=== PATIENT | female | born 1955 | race Hispanic/Latino ===

== ENCOUNTER → 2020-12-10 | Outpatient (CLI) | payer OTHER ==
[~2020-12-10] MED LIST: CEFD250S3 PO; DIPH25CA53 PO; HC1C1.5 TP
== END | disposition home or self-care (01) ==
LOC: RAH 16:12
PROVIDERS: ATTEND Family Medicine
DX: Z12.31 Encounter for screening mammogram for malignant neoplasm of breast (principal)
CPT/HCPCS: 77067

== ENCOUNTER 2022-03-16 21:35 | Observation (INO) | payer OTHER ==
[~2022-03-16] VITALS: Ht 142.2 cm; Wt 62.6 kg
[2022-03-16 21:46] LABS: BASOPHILS % (AUTO) 0.9 % (0.0-5.0); HEMATOCRIT 38.7 % (36-48); LYMPHOCYTES % (AUTO) 34.7 % (21.0-51.0); MEAN CORPUSCULAR HEMOGLOBIN 31.3 pg (27.0-33.0); MEAN CORPUSCULAR HGB CONC 34.6 g/dL (32.0-36.0); MEAN CORPUSCULAR VOLUME 90.4 fL (79-99); MONOCYTES % (AUTO) 8.4 % (3.0-13.0); NEUTROPHILS % (AUTO) 53.8 % (40.0-77.0); PLATELET COUNT (AUTO) 213 K/uL (130-400); RED BLOOD CELL COUNT(AUTO) 4.28 MIL/uL (4.00-5.50); RED CELL DISTRIBUTION WIDTH 12.4 % (11.0-15.5); WHITE BLOOD COUNT (AUTO) 9.3 K/uL (4.8-10.8)
[2022-03-16 22:00] LABS: CREATININE 0.8 mg/dL (0.5-1.5); POTASSIUM 3.6 mmol/L (3.5-5.1)
[2022-03-16 22:05] LABS: ALBUMIN 4.1 g/dL (3.5-5.0); TOTAL PROTEIN, SERUM 8.4 g/dL (6.0-8.3)
[2022-03-16 22:11] LABS: B-TYPE NATRIURETIC PEPTIDE 17 pg/mL (0-100)
[2022-03-16] MEDS ORDERED: NITROGLYCERIN 1GM OINT 1 INCH/1GM TD ONE (23:30)
[2022-03-16] MEDS ORDERED: HYDROCODONE/ACETAMINOPHEN 5/325 MG TAB PO ONE (23:30)
[2022-03-17] MEDS ORDERED: ASPIRIN 81MG CHEW TAB PO STA (03:57)
[2022-03-17] MEDS ORDERED: NITROGLYCERIN 0.4 MG SL TAB SL PRN (04:00)
[2022-03-17] MEDS ORDERED: HYDRALAZINE 20MG/ML VIAL IV STA (04:02)
[2022-03-17] MEDS ORDERED: TEMAZEPAM 15 MG CAPSULE PO PRN (04:30)
[2022-03-17] MEDS ORDERED: GLUCAGON 1MG KIT 1 MG ML IM PRN (04:30)
[2022-03-17] MEDS ORDERED: ACETAMINOPHEN 650 MG SUPPOSITORY RC PRN (04:30)
[2022-03-17] MEDS ORDERED: MAGNESIUM 2GM PREMIX 50ML 50 ML IV PRN (04:30)
[2022-03-17] MEDS ORDERED: ACETAMINOPHEN 325 MG TAB PO PRN (04:30)
[2022-03-17] MEDS ORDERED: DOCUSATE SODIUM 100 MG CAP PO PRN (04:30)
[2022-03-17] MEDS ORDERED: LIDOCAINE HCL-MPF 1% 2ML VIAL IV PRN (04:30)
[2022-03-17] MEDS ORDERED: HYDRALAZINE HCL 10 MG TABLET PO PRN (04:30)
[2022-03-17] MEDS ORDERED: DEXTROSE 50%-WATER 50 ML DISP.SYRIN IV PRN (04:30)
[2022-03-17] MEDS ORDERED: LACTULOSE 20 GM/30 ML UDCUP PO PRN (04:30)
[2022-03-17] MEDS ORDERED: ONDANSETRON 4MG INJ IVP PRN (04:30)
[2022-03-17] MEDS ORDERED: POTASSIUM CHLORIDE 20MEQ/100ML 100 ML IV PRN (04:30)
[2022-03-17] MEDS ORDERED: IPRATROPIUM/ALBUTEROL SULFATE 3 ML SOLUTION IH PRN (04:30)
[2022-03-17] MEDS ORDERED: HYDRALAZINE 20MG/ML VIAL IV PRN (04:30)
[2022-03-17] MEDS ORDERED: KCL 20 MEQ ERTAB PO PRN (04:30)
[2022-03-17] MEDS ORDERED: POTASSIUM CHLORIDE 10% ELIXIR 20 MEQ/15 ML UDCUP PO PRN (04:30)
[2022-03-17] MEDS ORDERED: INSULIN HUMULIN R 100 UNIT/ML 3ML SQ SCH (07:30)
[2022-03-17 07:32] LABS: BASOPHILS % (AUTO) 0.8 % (0.0-5.0); EOSINOPHILS % (AUTO) 3.2 % (0.0-8.0); HEMATOCRIT 35.9 % (36-48); MEAN CORPUSCULAR HEMOGLOBIN 31.2 pg (27.0-33.0); MEAN CORPUSCULAR HGB CONC 34.5 g/dL (32.0-36.0); MEAN CORPUSCULAR VOLUME 90.4 fL (79-99); MONOCYTES % (AUTO) 8.8 % (3.0-13.0); NEUTROPHILS % (AUTO) 50.7 % (40.0-77.0); PLATELET COUNT (AUTO) 195 K/uL (130-400); RED BLOOD CELL COUNT(AUTO) 3.97 MIL/uL (4.00-5.50); RED CELL DISTRIBUTION WIDTH 12.6 % (11.0-15.5); WHITE BLOOD COUNT (AUTO) 6.3 K/uL (4.8-10.8)
[2022-03-17 07:39] LABS: HEMOGLOBIN A1C 5.3 % (4.0-6.0)
[2022-03-17 07:53] LABS: ALBUMIN 3.5 g/dL (3.5-5.0); CREATININE 0.7 mg/dL (0.5-1.5); POTASSIUM 3.6 mmol/L (3.5-5.1); THYROID STIMULATING HORMONE 8.31 uIU/mL (0.36-3.74); TOTAL PROTEIN, SERUM 7.5 g/dL (6.0-8.3)
[2022-03-17] MEDS ORDERED: NAPROXEN 250 MG TAB PO SCH (10:30)
[2022-03-17] MEDS: LISINOPRIL 20 MG TABLET PO SCH (10:47)
[2022-03-17 10:53] LABS: CHOLESTEROL 218 mg/dL (<200); HDL CHOLESTEROL 38 mg/dL (35-85); LDL DIRECT 138 mg/dL (0-99); TRIGLYCERIDES 200 mg/dL (30-200)
[2022-03-17] MEDS ORDERED: KETOROLAC 60 MG VIAL (30MG/ML) IM SCH (12:30)
[2022-03-17] MEDS ORDERED: ENOXAPARIN SODIUM 40 MG/0.4 ML SYRINGE SQ SCH (12:30)
[2022-03-17 13:57] LABS: APPEARANCE,URINE CLOUDY (CLEAR); BILIRUBIN,URINE NEGATIVE (NEGATIVE); COLOR,URINE COLORLESS (YELLOW); GLUCOSE, URINE (UA) NEGATIVE (NEGATIVE); KETONES,URINE NEGATIVE (NEGATIVE); LEUKOCYTE ESTERASE ,URINE 500 Leu/uL (NEGATIVE); NITRATE,URINE 2+ (NEGATIVE); OCCULT BLOOD,URINE NEGATIVE (NEGATIVE); PH,URINE 6.5 (5.0-8.0); PROTEIN,URINE NEGATIVE (NEGATIVE); UROBILINOGEN,URINE 0.2 mg/dL (0.2-1.0)
[2022-03-17 14:17] LABS: BACTERIA,URINE MOD /HPF (None Seen); MUCUS,URINE RARE LPF (None Seen); SQUAMOUS EPITHELIAL CELL,UR MOD /HPF (0-2); WBC,URINE 26-50 /HPF (0-1)
[2022-03-17] MEDS: CEFTRIAXONE 2GM VIAL IVP SCH (15:19)
[2022-03-17] MEDS ORDERED: PANTOPRAZOLE 40 MG TAB DR PO SCH (17:00)
[2022-03-17] MEDS ORDERED: ATORVASTATIN 40 MG TABLET PO SCH (21:00)
[2022-03-17 22:25] VITALS: BP 156/73
[2022-03-18 03:12] VITALS: BP 141/74
[2022-03-18 04:17] LABS: HEMATOCRIT 34.4 % (36-48); MEAN CORPUSCULAR HEMOGLOBIN 31.8 pg (27.0-33.0); MEAN CORPUSCULAR HGB CONC 34.3 g/dL (32.0-36.0); MEAN CORPUSCULAR VOLUME 92.7 fL (79-99); RED BLOOD CELL COUNT(AUTO) 3.71 MIL/uL (4.00-5.50); RED CELL DISTRIBUTION WIDTH 12.6 % (11.0-15.5); WHITE BLOOD COUNT (AUTO) 6.8 K/uL (4.8-10.8)
[2022-03-18 04:36] LABS: CREATININE 0.9 mg/dL (0.5-1.5); POTASSIUM 4.2 mmol/L (3.5-5.1)
[2022-03-18] MEDS ORDERED: REGADENOSON 0.4 MG/5 ML PF SYG IVP SCH (07:00)
[2022-03-18 08:30] VITALS: BP 161/73
[2022-03-18] MEDS: LISINOPRIL 20 MG TABLET PO SCH (08:37)
[2022-03-18] MEDS ORDERED: ASPIRIN 81MG CHEW TAB PO SCH (09:00)
[2022-03-18] MEDS ORDERED: PANTOPRAZOLE 40 MG TAB DR PO SCH (09:00)
[2022-03-18] MEDS ORDERED: ENOXAPARIN SODIUM 40 MG/0.4 ML SYRINGE SQ SCH (09:00)
[2022-03-18 11:00] VITALS: BP 158/74
[2022-03-18] MEDS: CEFTRIAXONE 2GM VIAL IVP SCH (15:13)
[2022-03-18 16:00] VITALS: BP 151/76
[2022-03-18] MEDS ORDERED: ASPI-1005 PO (16:03)
[2022-03-18] MEDS ORDERED: CEPH500B PO (16:03)
[2022-03-18] MEDS ORDERED: ATOR40TA69 PO (16:03)
[2022-03-18] MEDS ORDERED: LISI20TA24 PO (16:03)
== END 2022-03-18 16:45 | disposition home or self-care (01) ==
LOC: EDH 21:35 → EDHIP 03-17 03:35 → 4DH 03-17 22:18 → 3DH 03-18 07:07
PROVIDERS: ADMIT Internal Medicine; ATTEND Internal Medicine
DX: I16.0 Hypertensive urgency (principal); Z20.822 Contact with and (suspected) exposure to COVID-19; R07.89 Other chest pain; E78.5 Hyperlipidemia, unspecified; E03.9 Hypothyroidism, unspecified; I44.7 Left bundle-branch block, unspecified; M94.0 Chondrocostal junction syndrome [Tietze]; N39.0 Urinary tract infection, site not specified; R94.31 Abnormal electrocardiogram [ECG] [EKG]; R03.0 Elevated blood-pressure reading, without diagnosis of hypertension; Z79.82 Long term (current) use of aspirin; Z79.899 Other long term (current) drug therapy; Z90.711 Acquired absence of uterus with remaining cervical stump; Z90.710 Acquired absence of both cervix and uterus; Z98.890 Other specified postprocedural states
CPT/HCPCS: 99285; 84484 ×3; 80053 ×2; 83880; 85025 ×2; 36415 ×3; 71045; 93005 ×3; 96374; 96372 ×2; 96375; 83036; 84443; 80061; 83690; 85378; 87077; 87088; 87186; 84439; 81001; 87635; 93306; 93356; 96376; 80048; 85027; 84481; 93017; 78452; G0378 ×33; J0696 ×2; J0360; J1885; J1650 ×2; J2785; A9500 ×2

== ENCOUNTER → 2023-03-10 | Outpatient (CLI) | payer OTHER ==
[~2023-03-10] MED LIST changes: +ASPI-1005 PO; +ATOR40TA69 PO; -CEFD250S3 PO; +CEPH500B PO; -DIPH25CA53 PO; -HC1C1.5 TP; +LISI20TA24 PO
== END | disposition home or self-care (01) ==
LOC: RAH 12:42
PROVIDERS: ATTEND Family Medicine
DX: N64.4 Mastodynia (principal)
CPT/HCPCS: 76641

== ENCOUNTER → 2023-04-30 | Outpatient (CLI) | payer OTHER | END | disposition home or self-care (01) | LOC: RAH 13:23 | PROVIDERS: ATTEND Family Medicine | DX: N63.41 Unspecified lump in right breast, subareolar (principal) | CPT/HCPCS: 77066 ==

== ENCOUNTER → 2024-06-29 | Outpatient (CLI) | payer OTHER ==
[~2024-06-29] MED LIST changes: +IOHEXOL 350 MG/ML 100ML INFUS..BTL IV ONE
--- NOTE | 2024-06-29 10:39 | HMCIMG ---
CT ABDOMEN/PELVIS W/WO CONTRAS REASON: MASS/LUMP INTR-ABD & PEL SWELLING COMPARISON: None. TECHNIQUE: Images are obtained from lung bases through the symphysis pubis following IV contrast, 100 cc Omnipaque 350. Oral contrast was administered as well. FINDINGS: Lung bases are clear. There are no focal liver lesions. There are normal-appearing kidneys.. Spleen appears unremarkable. The gallbladder appears normal as well. There are no focal pancreatic masses. The pancreatic duct is prominent at between 3 and 4 mm. Common duct caliber appears unremarkable. There is a well-circumscribed 2.3 x 2.4 x 2.5 cm simple appearing cyst. This appears to be immediately posterior and inferior to the head of the pancreas, medial to the uncinate process. This appears to be outside of the pancreas and does not appear to be part of the biliary tree. 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 Bowel loops appear unremarkable. This includes normal appearance of the appendix There is no evidence of free fluid or intraperitoneal air. There are no focal fluid collections. Aorta and retroperitoneum appear normal as do pelvic soft tissue structures. The anterior abdominal wall is intact. There is 7 mm retrosubluxation of L5 on S1. 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 Bones appear otherwise unremarkable. IMPRESSION: 1. 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 2. Mild prominence of pancreatic duct at between 3 and 4 mm, no focal lesions identified, no evidence of pancreatitis. 3. L5-S1 spondylolysis with grade [address] was performed with one or more following dose reduction techniques: automated exposure control, adjustment of the mA and kv according to patient's size, or use of a iterative reconstruction technique.
== END | disposition home or self-care (01) ==
LOC: RAH 09:20
PROVIDERS: ATTEND Family Medicine
DX: R19.00 Intra-abdominal and pelvic swelling, mass and lump, unspecified site (principal); M43.17 Spondylolisthesis, lumbosacral region; M47.817 Spondylosis without myelopathy or radiculopathy, lumbosacral region
CPT/HCPCS: 74178; Q9967